=== PATIENT | male | born 1970 | race African-American/Black ===

== ENCOUNTER 2017-09-24 12:44 | Emergency (ER) | payer OTHER ==
[2017-09-24 13:31] VITALS: RESP 18
--- NOTE | 2017-09-24 13:58 | ED ---
General Adult HPI - General Chief complaint: Extremity Problem,Nontraumatic Stated complaint: Leg Swelling Time Seen by Provider: 09/24/17 13:38 Source: patient, RN notes reviewed Mode of arrival: ambulatory Limitations: physical limitation - History of Present Illness Initial comments: Patient 47-year-old male with no significant past medical history presenting today with a chief complaint of bilateral lower leg edema and swelling. Patient does admit that he hit a coffee table 2 days ago the right evans. He does admit to a small abrasion to this area. Patient states that his feet and legs are more tender and painful worse with certain movements. He denies any other injuries or complaints. Patient denies any recent fever, chills, shortness of breath, chest pain, back pain, abdominal pain, nausea or vomiting, numbness or tingling, dysuria or hematuria, constipation or diarrhea, headaches or visual changes, or any other complaints. - Related Data Home Medications Medication Instructions Recorded Confirmed Ibuprofen [Motrin Ib] 400 mg PO Q6H PRN 09/24/17 09/24/17 Previous Rx's Medication Instructions Recorded Cephalexin [Keflex] 500 mg PO Q12HR 10 Days cap 09/24/17 Allergies Allergy/AdvReac Type Severity Reaction Status Date / Time No Known Allergies Allergy Verified 09/24/17 14:04 Review of Systems ROS Statement: Those systems with pertinent positive or pertinent negative responses have been documented in the HPI. ROS Other: All systems not noted in ROS Statement are negative. Past Medical History Past Medical History: No Reported History History of Any Multi-Drug Resistant Organisms: None Reported Past Surgical History: No Surgical Hx Reported Additional Past Surgical History / Comment(s): back injury from a fall off a roof in [place] january 2013 Past Psychological History: No Psychological Hx Reported Smoking Status: Current every day smoker Past Alcohol Use History: None Reported Past Drug Use History: None Reported, Marijuana General Exam - General Exam Comments Initial Comments: General: The patient is awake and alert, in no distress, and does not appear acutely ill. Eye: Pupils are equal, round and reactive to light, extra-ocular movements are intact. No nystagmus. There is normal conjunctiva bilaterally. No signs of icterus. Ears, nose, mouth and throat: There are moist mucous membranes and no oral lesions. Neck: The neck is supple, there is no tenderness or JVD. Cardiovascular: There is a regular rate and rhythm. No murmur, rub or gallop is appreciated. Respiratory: Lungs are clear to auscultation, respirations are non-labored, breath sounds are equal. No wheezes, stridor, rales, or rhonchi. Musculoskeletal: Normal ROM. Strength 5/5. Sensation intact. Pulses equal bilaterally 2+. 1+ pitting edema. Neurological: A&O x 3. CN II-XII intact, There are no obvious motor or sensory deficits. Coordination appears grossly intact. Speech is normal. Skin: Increased redness erythema to the lower legs bilaterally. There is an abrasion over the anterior aspect of the right lower leg mid shaft. There is some redness locally around. No fluctuance. Psychiatric: Cooperative, appropriate mood & affect, normal judgment. Limitations: physical limitation Course Vital Signs 09/24/17 13:26 Temperature 98.8 F Pulse Rate 71 Respiratory 18 Rate Blood Pressure 116/55 O2 Sat by Pulse 96 Oximetry Medical Decision Making - Medical Decision Making Patient's ultrasound negative for any evidence of DVT in either the left right lower extremity. There is evidence for a lymph node left groin. Patient's labs been reviewed are unremarkable. Patient does have lower leg swelling. The BNP is negative. Denies any shortness of breath. Patient is advised to elevate the leg. Case was discussed and seen by attending physician Dr. Diallo. Patient will be discharged home placed on antibiotics cover for possible cellulitis. Advised following up with the family doctor over the next 2 days return here to the emergency room if any symptoms increase or worsen or for any other concerns. - Lab Data Result diagrams: 09/24/17 14:00 09/24/17 14:00 Lab Results 09/24/17 09/24/17 09/24/17 Range/Units 14:00 14:00 14:00 WBC 5.9 (3.8-10.6) k/uL RBC 4.25 L (4.30-5.90) m/uL Hgb 11.7 L (13.0-17.5) gm/dL Hct 37.5 L (39.0-53.0) % MCV 88.3 (80.0-100.0) fL MCH 27.6 (25.0-35.0) pg MCHC 31.3 (31.0-37.0) g/dL RDW 14.6 (11.5-15.5) % Plt Count 183 (150-450) k/uL Neutrophils % 47 % Lymphocytes % 39 % Monocytes % 6 % Eosinophils % 5 % Basophils % 1 % Neutrophils # 2.8 (1.3-7.7) k/uL Lymphocytes # 2.3 (1.0-4.8) k/uL Monocytes # 0.4 (0-1.0) k/uL Eosinophils # 0.3 (0-0.7) k/uL Basophils # 0.0 (0-0.2) k/uL PT 9.9 (9.0-12.0) sec INR 1.0 (<1.2) APTT 23.4 (22.0-30.0) sec Sodium 140 (137-145) mmol/L Potassium 4.3 (3.5-5.1) mmol/L Chloride 104 (98-107) mmol/L Carbon Dioxide 29 (22-30) mmol/L Anion Gap 7 mmol/L BUN 12 (9-20) mg/dL Creatinine 0.90 (0.66-1.25) mg/dL Est GFR (MDRD) Af Amer >60 (>60 ml/min/1.73 sqM) Est GFR (MDRD) Non-Af >60 (>60 ml/min/1.73 sqM) Glucose 89 (74-99) mg/dL Calcium 8.8 (8.4-10.2) mg/dL Total Bilirubin 0.5 (0.2-1.3) mg/dL AST 32 (17-59) U/L ALT 34 (21-72) U/L Alkaline Phosphatase 85 (38-126) U/L NT-Pro-B Natriuret Pep pg/mL Total Protein 6.6 (6.3-8.2) g/dL Albumin 3.6 (3.5-5.0) g/dL 09/24/17 Range/Units 14:00 WBC (3.8-10.6) k/uL RBC (4.30-5.90) m/uL Hgb (13.0-17.5) gm/dL Hct (39.0-53.0) % MCV (80.0-100.0) fL MCH (25.0-35.0) pg MCHC (31.0-37.0) g/dL RDW (11.5-15.5) % Plt Count (150-450) k/uL Neutrophils % % Lymphocytes % % Monocytes % % Eosinophils % % Basophils % % Neutrophils # (1.3-7.7) k/uL Lymphocytes # (1.0-4.8) k/uL Monocytes # (0-1.0) k/uL Eosinophils # (0-0.7) k/uL Basophils # (0-0.2) k/uL PT (9.0-12.0) sec INR (<1.2) APTT (22.0-30.0) sec Sodium (137-145) mmol/L Potassium (3.5-5.1) mmol/L Chloride (98-107) mmol/L Carbon Dioxide (22-30) mmol/L Anion Gap mmol/L BUN (9-20) mg/dL Creatinine (0.66-1.25) mg/dL Est GFR (MDRD) Af Amer (>60 ml/min/1.73 sqM) Est GFR (MDRD) Non-Af (>60 ml/min/1.73 sqM) Glucose (74-99) mg/dL Calcium (8.4-10.2) mg/dL Total Bilirubin (0.2-1.3) mg/dL AST (17-59) U/L ALT (21-72) U/L Alkaline Phosphatase (38-126) U/L NT-Pro-B Natriuret Pep 47 pg/mL Total Protein (6.3-8.2) g/dL Albumin (3.5-5.0) g/dL Disposition Clinical Impression: Bilateral leg edema Disposition: HOME SELF-CARE Condition: Good Instructions: Leg Edema (ED), Cellulitis (ED) Additional Instructions: Please use medication as discussed. Please elevate legs as discussed. Please follow-up with family doctor in the next 2 days of symptoms have not improved. Please return to emergency room if the symptoms increase or worsen or for any other concerns. Prescriptions: Cephalexin [Keflex] 500 mg PO Q12HR 10 Days cap Referrals: None,Stated [Primary Care Provider] - 1-2 days Nolberto Tyler MD [STAFF PHYSICIAN] - 1-2 days Time of Disposition: 15:40
[2017-09-24 14:25] LABS: Basophils % (A) 1 %; Eosinophils # (A) 0.3 k/uL (0-0.7); Eosinophils % (A) 5 %; HCT 37.5 % (39.0-53.0); HGB 11.7 gm/dL (13.0-17.5); Lymphocytes # (A) 2.3 k/uL (1.0-4.8); Lymphocytes % (A) 39 %; MCH 27.6 pg (25.0-35.0); MCHC 31.3 g/dL (31.0-37.0); MCV 88.3 fL (80.0-100.0); Mean Platelet Volume 7.3; Monocytes # (A) 0.4 k/uL (0-1.0); Monocytes % (A) 6 %; Neutrophils # (A) 2.8 k/uL (1.3-7.7); Neutrophils % (A) 47 %; Platelet Count 183 k/uL (150-450); RBC 4.25 m/uL (4.30-5.90); RDW 14.6 % (11.5-15.5); WBC 5.9 k/uL (3.8-10.6)
[2017-09-24 14:39] LABS: ALT 34 U/L (21-72); AST 32 U/L (17-59); Albumin 3.6 g/dL (3.5-5.0); Alkaline Phosphatase 85 U/L (38-126); Anion Gap 7 mmol/L; Blood Urea Nitrogen 12 mg/dL (9-20); Calcium 8.8 mg/dL (8.4-10.2); Carbon Dioxide 29 mmol/L (22-30); Chloride 104 mmol/L (98-107); Glucose 89 mg/dL (74-99); Potassium 4.3 mmol/L (3.5-5.1); Sodium 140 mmol/L (137-145); Total Bilirubin 0.5 mg/dL (0.2-1.3); Total Protein 6.6 g/dL (6.3-8.2)
[2017-09-24 14:45] LABS: Partial Thromboplastin Time 23.4 sec (22.0-30.0); Prothrombin Time 9.9 sec (9.0-12.0)
--- NOTE | 2017-09-24 14:56 | US ---
EXAMINATION TYPE: US venous doppler duplex LE DATE OF EXAM: 09/24/2017 2:41 PM COMPARISON: NONE CLINICAL HISTORY: Pain. Swelling SIDE PERFORMED: Bilateral TECHNIQUE: The lower extremity deep venous system is examined utilizing real time linear array sonog fito with graded compression, doppler sonography and color-flow sonography. VESSELS IMAGED: External Iliac Vein (EIV) Common Femoral Vein Deep Femoral Vein Greater Saphenous Vein * Femoral Vein Popliteal Vein Small Saphenous Vein * Proximal Calf Veins (* superficial vessels) Grayscale, color doppler, spectral doppler imaging performed of the deep veins of the lower extremiti es. There is normal flow, compressibility, vascular waveforms. Right Leg: Negative for DVT. Multiple probable lymph nodes visualized in the left groin, largest adri suring 2.4 x 1.1 x 3.1 cm Left Leg: Negative for DVT. Multiple probable lymph nodes visualized in the left groin, largest abby uring 3.3 x 1.3 x 2.4 cm IMPRESSION: 1. No evidence of DVT bilaterally.
[2017-09-24 15:41] VITALS: BP 124/64; PULSE 83; TEMP 97.7
== END 2017-09-24 15:49 | disposition home or self-care (01) ==
LOC: EC 12:44
DX: S80.811A Abrasion, right lower leg, initial encounter (principal); R60.0 Localized edema; F17.200 Nicotine dependence, unspecified, uncomplicated; W22.8XXA Striking against or struck by other objects, initial encounter
CPT/HCPCS: 36415; 80053; 83880; 85025; 85610; 85730; 87040; 93970; 99283

== ENCOUNTER 2019-09-05 13:01 | Emergency (ER) | payer OTHER ==
[2019-09-05 13:09] VITALS: BP 125/85; PULSE 105; RESP 18; TEMP 97.9
--- NOTE | 2019-09-05 13:37 | ED ---
General Adult HPI - General Chief complaint: Fall Stated complaint: fall, back injury Time Seen by Provider: 09/05/19 13:17 Source: patient, RN notes reviewed, old records reviewed Mode of arrival: ambulatory Limitations: no limitations - History of Present Illness Initial comments: 49-year-old male presents for evaluation of right-sided low back pain status post fall. Patient states yesterday evening he was carrying a couch down the stairs with his brother. He fell onto his back. He couch on his abdomen. This occurred approximately 18 hours prior to arrival. He's having right-sided back pain which is described as moderate. He also reports some abdominal pain. He reports no injury to the lower extremities but states he is feeling some swe lling in both of his feet which is new over the past 12 hours. No chest pain. No dyspnea. No chronic medical conditions. no current medications. No head or neck trauma, no loss consciousness. - Related Data Home Medications Medication Instructions Recorded Confirmed Ibuprofen [Motrin Ib] 400 mg PO Q6H PRN 09/24/17 09/24/17 Previous Rx's Medication Instructions Recorded Cephalexin [Keflex] 500 mg PO Q12HR 10 Days cap 09/24/17 Ibuprofen [Motrin] 600 mg PO Q8HR PRN #24 tab 09/05/19 Allergies Allergy/AdvReac Type Severity Reaction Status Date / Time No Known Allergies Allergy Verified 09/24/17 14:04 Review of Systems ROS Statement: Those systems with pertinent positive or pertinent negative responses have been documented in the HPI. ROS Other: All systems not noted in ROS Statement are negative. Past Medical History Past Medical History: No Reported History History of Any Multi-Drug Resistant Organisms: None Reported Past Surgical History: No Surgical Hx Reported Additional Past Surgical History / Comment(s): back injury from a fall off a roof in [place] january 2013 Past Psychological History: No Psychological Hx Reported Smoking Status: Current every day smoker Past Alcohol Use History: None Reported Past Drug Use History: None Reported, Marijuana General Exam Limitations: no limitations General appearance: alert, in no apparent distress Head exam: Present: atraumatic, normocephalic Eye exam: Present: normal appearance, PERRL, EOMI Neck exam: Present: normal inspection, full ROM. Absent: tenderness, meningismus Respiratory exam: Present: normal lung sounds bilaterally. Absent: respiratory distress, wheezes, rales Cardiovascular Exam: Present: regular rate, normal rhythm GI/Abdominal exam: Present: soft, tenderness. Absent: distended, guarding, rebound Extremities exam: Present: full ROM, pedal edema. Absent: tenderness Back exam: Present: normal inspection, paraspinal tenderness (Right lumbar). Absent: vertebral tenderness Neurological exam: Present: alert, oriented X3, CN II-XII intact. Absent: motor sensory deficit Psychiatric exam: Present: normal affect, normal mood Skin exam: Present: warm, dry, intact. Absent: cyanosis, diaphoretic Course Vital Signs 09/05/19 13:06 Temperature 97.9 F Pulse Rate 105 H Respiratory 18 Rate Blood Pressure 125/85 O2 Sat by Pulse 100 Oximetry Medical Decision Making - Medical Decision Making 49-year-old male presenting with low back pain status post fall. Patient is tender on the right paraspinal lumbar region with no external signs of trauma, no step-off. Given the mechanism of the fall did order CT with lumbar reconstruction of the abdomen and pelvis is negative for any acute bony abnormality or traumatic injury within the abdomen. Chest x-ray obtained which is negative for pneumothorax, no displaced rib fractures. He has a normal hemoglobin and normal labs otherwise. He is given Toradol for pain. He is prescribed Motrin for low back pain and will follow with his primary care physician. - Lab Data Result diagrams: 09/05/19 13:35 09/05/19 13:35 Lab Results 09/05/19 09/05/19 09/05/19 Range/Units 13:35 13:35 13:35 WBC 6.5 (3.8-10.6) k/uL RBC 4.89 (4.30-5.90) m/uL Hgb 13.7 (13.0-17.5) gm/dL Hct 43.4 (39.0-53.0) % MCV 88.8 (80.0-100.0) fL MCH 28.0 (25.0-35.0) pg MCHC 31.5 (31.0-37.0) g/dL RDW 14.4 (11.5-15.5) % Plt Count 209 (150-450) k/uL Neutrophils % 58 % Lymphocytes % 31 % Monocytes % 5 % Eosinophils % 3 % Basophils % 1 % Neutrophils # 3.7 (1.3-7.7) k/uL Lymphocytes # 2.0 (1.0-4.8) k/uL Monocytes # 0.3 (0-1.0) k/uL Eosinophils # 0.2 (0-0.7) k/uL Basophils # 0.1 (0-0.2) k/uL PT (9.0-12.0) sec INR (<1.2) APTT (22.0-30.0) sec Sodium 140 (137-145) mmol/L Potassium 4.4 (3.5-5.1) mmol/L Chloride 109 H (98-107) mmol/L Carbon Dioxide 24 (22-30) mmol/L Anion Gap 7 mmol/L BUN 9 (9-20) mg/dL Creatinine 0.88 (0.66-1.25) mg/dL Est GFR (CKD-EPI)AfAm >90 (>60 ml/min/1.73 sqM) Est GFR (CKD-EPI)NonAf >90 (>60 ml/min/1.73 sqM) Glucose 99 (74-99) mg/dL Calcium 8.8 (8.4-10.2) mg/dL Total Bilirubin 0.5 (0.2-1.3) mg/dL AST 32 (17-59) U/L ALT 31 (4-49) U/L Alkaline Phosphatase 84 (38-126) U/L NT-Pro-B Natriuret Pep 57 pg/mL Total Protein 7.0 (6.3-8.2) g/dL Albumin 3.9 (3.5-5.0) g/dL 09/05/19 Range/Units 13:35 WBC (3.8-10.6) k/uL RBC (4.30-5.90) m/uL Hgb (13.0-17.5) gm/dL Hct (39.0-53.0) % MCV (80.0-100.0) fL MCH (25.0-35.0) pg MCHC (31.0-37.0) g/dL RDW (11.5-15.5) % Plt Count (150-450) k/uL Neutrophils % % Lymphocytes % % Monocytes % % Eosinophils % % Basophils % % Neutrophils # (1.3-7.7) k/uL Lymphocytes # (1.0-4.8) k/uL Monocytes # (0-1.0) k/uL Eosinophils # (0-0.7) k/uL Basophils # (0-0.2) k/uL PT 9.7 (9.0-12.0) sec INR 0.9 (<1.2) APTT 23.9 (22.0-30.0) sec Sodium (137-145) mmol/L Potassium (3.5-5.1) mmol/L Chloride (98-107) mmol/L Carbon Dioxide (22-30) mmol/L Anion Gap mmol/L BUN (9-20) mg/dL Creatinine (0.66-1.25) mg/dL Est GFR (CKD-EPI)AfAm (>60 ml/min/1.73 sqM) Est GFR (CKD-EPI)NonAf (>60 ml/min/1.73 sqM) Glucose (74-99) mg/dL Calcium (8.4-10.2) mg/dL Total Bilirubin (0.2-1.3) mg/dL AST (17-59) U/L ALT (4-49) U/L Alkaline Phosphatase (38-126) U/L NT-Pro-B Natriuret Pep pg/mL Total Protein (6.3-8.2) g/dL Albumin (3.5-5.0) g/dL Disposition Clinical Impression: Fall, Lumbar contusion, Lumbar spine strain Disposition: HOME SELF-CARE Condition: Good Instructions (If sedation given, give patient instructions): Acute Low Back Pain (ED), Lower Back Exercises (ED), Contusion in Adults (ED) Prescriptions: Ibuprofen [Motrin] 600 mg PO Q8HR PRN #24 tab PRN Reason: Pain Is patient prescribed a controlled substance at d/c from ED?: No Referrals: None,Stated [Primary Care Provider] - 1-2 days Nic Fontanez [STAFF PHYSICIAN] - 1-2 days Time of Disposition: 15:10
[2019-09-05 13:54] LABS: Basophils # (A) 0.1 k/uL (0-0.2); Basophils % (A) 1 %; Eosinophils # (A) 0.2 k/uL (0-0.7); Eosinophils % (A) 3 %; HCT 43.4 % (39.0-53.0); HGB 13.7 gm/dL (13.0-17.5); Lymphocytes % (A) 31 %; MCHC 31.5 g/dL (31.0-37.0); MCV 88.8 fL (80.0-100.0); Monocytes # (A) 0.3 k/uL (0-1.0); Monocytes % (A) 5 %; Neutrophils # (A) 3.7 k/uL (1.3-7.7); Neutrophils % (A) 58 %; Platelet Count 209 k/uL (150-450); RBC 4.89 m/uL (4.30-5.90); RDW 14.4 % (11.5-15.5); WBC 6.5 k/uL (3.8-10.6)
[2019-09-05 14:08] LABS: INR 0.9 (<1.2); Partial Thromboplastin Time 23.9 sec (22.0-30.0); Prothrombin Time 9.7 sec (9.0-12.0)
[2019-09-05 14:17] LABS: ALT 31 U/L (4-49); AST 32 U/L (17-59); African American GFR (CKD) >90 (>60 ml/min/1.73 sqM); Albumin 3.9 g/dL (3.5-5.0); Alkaline Phosphatase 84 U/L (38-126); Blood Urea Nitrogen 9 mg/dL (9-20); Calcium 8.8 mg/dL (8.4-10.2); Carbon Dioxide 24 mmol/L (22-30); Glucose 99 mg/dL (74-99); Non-African American GFR(CKD) >90 (>60 ml/min/1.73 sqM); Total Bilirubin 0.5 mg/dL (0.2-1.3)
[2019-09-05 14:29] LABS: Anion Gap 7 mmol/L; Chloride 109 mmol/L (98-107); Potassium 4.4 mmol/L (3.5-5.1); Sodium 140 mmol/L (137-145)
--- NOTE | 2019-09-05 14:43 | XR ---
EXAMINATION TYPE: XR chest 2V DATE OF EXAM: 09/05/2019 COMPARISON: NONE HISTORY: Fall injury with pain. TECHNIQUE: Frontal and lateral views of the chest are obtained. FINDINGS: Low lung volumes. There is no focal air space opacity, pleural effusion, or pneumothorax se en. The cardiac silhouette size is upper limits of normal. The osseous structures are intact. IMPRESSION: Low lung volumes without suspicious acute cardiopulmonary process.
--- NOTE | 2019-09-05 14:59 | CT ---
EXAMINATION TYPE: CT abdomen pelvis w con DATE OF EXAM: 09/05/2019 COMPARISON: None. HISTORY: Abdominal and pelvic along with Low back pain post fall. CT DLP: 2220.1 mGycm, Automated Exposure Control for Dose Reduction was Utilized. CONTRAST: CT scan of the abdomen and pelvis is performed without oral but with IV Contrast, patient injected wi th 100 mL of Isovue 300. FINDINGS: LUNG BASES: No significant abnormality is appreciated. LIVER/GB: No significant abnormality is appreciated. PANCREAS: No significant abnormality is seen. SPLEEN: No significant abnormality is seen. ADRENALS: No significant abnormality is seen. KIDNEYS: Symmetric cortical medullary uptake and excretion without hydronephrosis seen bilaterally. A few small simple appearing thin-walled cyst upper pole of the left kidney are noted. The bladder is not greatly distended. BOWEL: Diverticula in the sigmoid colon. No CT evidence for acute diverticulitis. No suspicious small or large bowel dilatation. Normal-appearing appendix from cecum in the right upper pelvis. PROSTATE/SEMINAL VESICLES: No gross abnormality seen. LYMPH NODES: No greater than 1cm abdominal or pelvic lymph nodes are appreciated. OSSEOUS STRUCTURES: There are 5 lumbar type vertebra. Lumbar spine shows satisfactory alignment witho ut evidence of acute fracture or dislocation. Vertebral body heights and disc space heights are maint ained. Mild narrowing and spurring about both hip joints. OTHER: Mild calcified plaque in the aorta extending into the iliac branch vessels. Small to moderate sized periumbilical hernia containing fat and tiny mesenteric vessels IMPRESSION: No significant acute finding is seen to account for patient's clinical symptoms of pain after trauma injury.
[2019-09-05] MEDS ORDERED: KETOROLAC 30 MG/ML 1 ML VIAL IVP STA (15:05)
[2019-09-05] MEDS ORDERED: ACET/COD 300 MG/30 MG STARTER PACK 6 TAB BTL PO STA (15:21)
== END 2019-09-05 15:18 | disposition home or self-care (01) ==
LOC: EC 13:01
DX: S39.012A Strain of muscle, fascia and tendon of lower back, initial encounter (principal); F17.200 Nicotine dependence, unspecified, uncomplicated; W10.8XXA Fall (on) (from) other stairs and steps, initial encounter; Y93.89 Activity, other specified; Y92.009 Unspecified place in unspecified non-institutional (private) residence as the place of occurrence of the external cause
CPT/HCPCS: 36415; 83880; 80053; 85025; 85610; 85730; 71046; 74177; 96374; 99284; J1885; Q9967